=== PATIENT | female | born 1950 | race Caucasian/White ===

== ENCOUNTER → 2017-02-01 | Outpatient (CLI) | payer MEDICARE ==
[~2017-02-01] MED LIST: MOTRIN-DPS400 MG PO; OYSTER SHELL C500 MG PO; PERCOCET 5 DPS1 TAB PO; SYNTHROID25 MCG PO
== END | disposition home or self-care (01) ==
LOC: RAD.S 10:53
DX: Z12.31 Encounter for screening mammogram for malignant neoplasm of breast (principal)